=== PATIENT | female | born 1960 | race African-American/Black ===

== ENCOUNTER → 2019-12-08 | Outpatient (CLI) | payer MEDICARE ==
--- NOTE | 2019-12-08 11:05 | RAD ---
CT HEAD WO CONTRAST History: Fall 2 weeks ago, hit head, headache Comparison: February 11, 2010 Technique: Noncontrast CT imaging was performed of the head. Exposure: One or more of the following individualized dose reduction techniques were utilized for this examination: 1. Automated exposure control 2. Adjustment of the mA and/or kV according to patient size 3. Use of iterative reconstruction technique. Findings: No acute extra-axial or parenchymal hemorrhage is identified. There is no significant intra-axial mass effect, midline shift, or extra-axial fluid collection. The marx-white differentiation of the major vascular territories is preserved. The ventricles, sulci, and cisterns are within normal limits in size and configuration. The mastoid air cells and the visualized paranasal sinuses are aerated. No acute calvarial abnormality is identified. Impression: 1. No acute intracranial abnormality is identified. Electronically signed by: Chase Carroll MD (12/08/2019 11:02 AM) [id number]
== END | disposition home or self-care (01) ==
LOC: PMG 10:41
PROVIDERS: ATTEND Registered Nurse
DX: S09.90XA Unspecified injury of head, initial encounter (principal); G43.909 Migraine, unspecified, not intractable, without status migrainosus; Z87.828 Personal history of other (healed) physical injury and trauma; X58.XXXA Exposure to other specified factors, initial encounter; Y93.89 Activity, other specified; Y92.89 Other specified places as the place of occurrence of the external cause; Y99.8 Other external cause status
CPT/HCPCS: 70450

== ENCOUNTER → 2019-12-16 | Outpatient (CLI) | payer MEDICARE ==
--- NOTE | 2019-12-16 10:06 | RAD ---
ABDOMEN COMPLETE History: Hepatitis C, elevated liver function tests Comparison: None. Findings: Multiple sonographic images of the abdomen are submitted. There is no abnormality of the visualized pancreas. No free fluid is demonstrated. Gallbladder is present without demonstrable intraluminal abnormality, somewhat contracted appearance despite reportedly patient reportedly not having any oral intake for 10 hours. Gallbladder wall thickness is upper limits of normal about 3 mm. There is some scattered plaque of the abdominal aorta, caliber within normal limits up to 2.5 cm. There is segmental visualization of the inferior vena cava. No focal hepatic lesion is demonstrated. There is mild coarsening of the hepatic echotexture. Common bile duct is within normal limits about 0.5 cm. Right kidney measured 10.9 x 5.1 x 5.7 cm, no hydronephrosis. Spleen measured up to 10.3 x 4.3 x 6.3 cm. Left kidney measured 11.2 x 5.3 x 4.9 cm, no hydronephrosis. Impression: 1. There is nonspecific contracted appearance of the gallbladder without demonstrable intraluminal abnormality, also no biliary duct dilatation. There is degree of coarsening of the hepatic echotexture which could be seen with steatosis or other hepatocellular disease. Electronically signed by: Chase Carroll MD (12/16/2019 10:03 AM) [id number]
--- NOTE | 2019-12-22 17:14 | RAD ---
BILATERAL SCREENING MAMMOGRAM, 3-D History: Routine screening. Comparison: 01/07/2013, 02/24/2014, 03/31/2016 mammographic exams. Technique: MLO and CC digital tomosynthesis (3D) images obtained. Radiologist reviewed these images on dedicated workstation. Findings: Breast Tissue Density B : There are scattered areas of fibroglandular density. There are no dominant masses, suspicious microcalcifications, or architectural distortion. Benign calcifications are present. IMPRESSION: No mammographic evidence of malignancy. Recommend routine screening. BI-RADS category 1: Negative. The images were reviewed with computer-aided detection. Patient information is entered into reminder system with a target due date for the next screening mammogram. Mammography is the most sensitive method for finding small breast cancers, but it does not detect them all and is not a substitute for careful clinical examination. A negative mammogram does not negate a clinically suspicious finding and should not result in delay in biopsying a clinically suspicious abnormality. "Our facility is accredited by the [employer] Mammography Program." Electronically signed by: Christopher Simeon MD (12/22/2019 5:11 PM) [id number]
== END | disposition home or self-care (01) ==
LOC: US 08:25
PROVIDERS: ATTEND Registered Nurse
DX: Z12.31 Encounter for screening mammogram for malignant neoplasm of breast (principal)
CPT/HCPCS: 76700; 77063; 77067